=== PATIENT | male | born 1950 | race Caucasian/White ===

== ENCOUNTER 2018-03-08 11:16 | Emergency (ER) | payer OTHER ==
--- NOTE | 2018-03-08 12:24 | RAD REPORT ---
EXAM DESCRIPTION: RAD - Ankle Right 3 View - 03/08/2018 12:17 pm CLINICAL HISTORY: PAIN Trauma, bruising and laceration to leg. COMPARISON: No comparisons FINDINGS: Lateral ankle soft tissue swelling is seen. Small bony fragment is noted adjacent to the d istal fibula, probably related to previous trauma. No definitive acute fracture seen. Prominent calca kate spurs are evident. Prominent calcaneal spurs. If pain persists or progresses, MR imaging followu p would be of value.
--- NOTE | 2018-03-08 12:30 | RAD REPORT ---
EXAM DESCRIPTION: RAD - Tib Fib Left - 03/08/2018 12:21 pm CLINICAL HISTORY: PAIN Trauma, pain and laceration. COMPARISON: Knee Left 3 View dated 03/08/2018 FINDINGS: Bony fragmentation along the lateral malleolus appears well corticated and is favored to b e chronic. An acute fracture or dislocation is not confirmed. Soft tissue swelling is present about t he ankle. A radiopaque foreign body is not seen.
--- NOTE | 2018-03-08 12:31 | RAD REPORT ---
EXAM DESCRIPTION: RAD - Knee Left 3 View - 03/08/2018 12:17 pm CLINICAL HISTORY: PAIN Trauma, laceration, pain and swelling. COMPARISON: Tib Fib Left dated 03/08/2018 FINDINGS: Mild arthritic changes are present. No fracture or dislocation seen. No suprapatellar join t effusion. No radiopaque foreign body identified.
[2018-03-08 12:53] LABS: Potassium 4.4 mmol/L (3.5-5.1)
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
== END 2018-03-08 13:13 | disposition home or self-care (01) ==
LOC: ER 11:16
DX: S50.812A Abrasion of left forearm, initial encounter (principal); S80.12XA Contusion of left lower leg, initial encounter; S80.11XA Contusion of right lower leg, initial encounter; W31.89XA Contact with other specified machinery, initial encounter; Y93.9 Activity, unspecified; Y92.9 Unspecified place or not applicable
CPT/HCPCS: 36415; 80048; 82550; 99284

== ENCOUNTER 2018-10-02 07:33 | Day surgery (SDC) | payer OTHER ==
--- OUTSIDE RECORDS SUMMARY | 2018-10-02 07:35 | XMS REPORT ---
:1950 Author Organization e[employer] Care Team Providers Name Role Phone Lito Cristina Provider Role Unavailable Allergies, Adverse Reactions, Alerts Substance Reaction Event Type N.K.D.A. Info Not Available Non Drug Allergy Problems Problem Type Condition Code Onset Dates Condition Status Problem Hypocalcemia E83.51 Active Problem Mixed hyperlipidemia E78.2 Active Problem Dehydration E86.0 Active Assessment Encounter for screening colonoscopy Z12.11 Active Problem Prediabetes R73.03 Active Problem Benign prostatic hyperplasia without N40.0 Active lower urinary tract symptoms Medications Medication Code System Code Instructions Start Date End Date Status Dosage Vitamin D [facility] 32565725500 1000 UNIT Orally Active 1 tablet Once a day Results No Known Results Summary Purpose eClinicalWorks Submission
[2018-10-02] MEDS ORDERED: Ringers Lactate 1,000 ML IV ONE (07:49)
[2018-10-02] MEDS ORDERED: LIDOCAINE 1% MPF 5 ML VIAL ONE (08:34)
[2018-10-02] MEDS ORDERED: PROPOFOL 200 MG/20 ML VIAL IV ONE (08:34)
--- NOTE | 2018-10-02 09:14 | ENDO RPT ---
[address], [address] COLONOSCOPY PROCEDURE REPORT EXAM DATE: 10/02/2018 PATIENT NAME: Noah Funk MR #: [id number] BIRTHDATE: 1950 ATTENDING: Lito Cristina DR STATUS: outpatient WHEEL PRESS OPERATOR: Tami Castro RN, Julieta Xiong, and Graciela Ma RN INDICATIONS: The patient is a 68 yr old Male here for a colonoscopy due to colon cancer screening PROCEDURE PERFORMED: Screening Colonoscopy and Colonoscopy MEDICATIONS: Per Anesthesia. ESTIMATED BLOOD LOSS: None CONSENT: The patient understands the risks and benefits of the procedure and understands that these risks include, but are not limited to: sedation, allergic reaction, infection, perforation and/or bleeding. Alternative means of evaluation and treatment include, among others: physical exam, x-rays, and/or surgical intervention. The patient elects to proceed with this endoscopic procedure. DESCRIPTION OF PROCEDURE: During intra-op preparation period all mechanical medical equipment was checked for proper function. Hand hygiene and appropriate measures for infection prevention was taken. Procedure, possible complications, alternatives including, but not limited to possibility of bleeding, perforation, tear, infection, sepsis, need for surgery, need for blood transfusion, were explained to the patient. After the risks, benefits and alternatives of the procedure were thoroughly explained, Informed consent was verified, confirmed and timeout was successfully executed by the treatment team. The patient was placed in the left lateral position. A digital rectal exam was performed and revealed internal hemorrhoids. After appropriate level of anesthesia, the scope was passed. The EC-[id number] ([id number]) endoscope was introduced through the anus and advanced to the cecum, which was identified by both the appendix and ileocecal valve. The quality of the prep was fair. The instrument was then slowly withdrawn as the colon was fully examined. Scope withdrawal time was 9 minutes. COLON FINDINGS: Small internal hemorrhoids were found. The colon mucosa was otherwise normal. Retroflexed views revealed no abnormalities. The scope was then completely withdrawn from the patient and the procedure terminated. ADVERSE EVENTS: There were no complications. IMPRESSIONS: 1. Small internal hemorrhoids 2. The colon mucosa was otherwise normal RECOMMENDATIONS: 1. fiber rich diet 2. hemorrhoidal hygiene 3. yearly hemoccult starting in 4 years RECALL: Return in 10 year(s) for Colonoscopy. Lito Cristina DR eSigned: Lito Cristina DR 10/02/2018 9:07 AM cc: CPT CODES: ICD9 CODES: PATIENT NAME: Noah Funk MR#: [id number]
== END 2018-10-02 09:41 | disposition home or self-care (01) ==
LOC: OR 07:33
PROVIDERS: ATTEND Surgery
PROC: 0DJD8ZZ Inspection of Lower Intestinal Tract, Via Natural or Artificial Opening Endoscopic (ICD-10-PCS; principal; 2018-10-02 08:30)
DX: Z12.11 Encounter for screening for malignant neoplasm of colon (principal); K64.8 Other hemorrhoids; E78.2 Mixed hyperlipidemia; R73.03 Prediabetes; E83.51 Hypocalcemia; Z87.891 Personal history of nicotine dependence; Z80.3 Family history of malignant neoplasm of breast; Z80.1 Family history of malignant neoplasm of trachea, bronchus and lung; Z80.6 Family history of leukemia
CPT/HCPCS: G0121; J2704

== ENCOUNTER 2023-04-23 08:54 | Day surgery (SDC) | payer OTHER ==
[2023-04-20 11:28] LABS: Potassium 4.4 mEq/L (3.5-5.1)
[2023-04-23] MEDS ORDERED: NA CHLORIDE 0.9% 500 ML ONE (09:28)
[2023-04-23] MEDS ORDERED: TETRACAINE HCL 0.5% 4ML OPTH ONE (09:44)
[2023-04-23] MEDS: CYCLOPENTOLATE 1% OPTH 2 ML ONE ×3 (11:08→11:18)
[2023-04-23] MEDS: PHENYLEPHRINE 10% OPTH 5ML ONE ×3 (11:08→11:18)
[2023-04-23] MEDS ORDERED: BUPIVACAINE 0.25% PF 10 ML VIAL ONE (11:52)
[2023-04-23] MEDS ORDERED: BSS OPTHALMIC SOL 15 ML OPTH ONE (11:52)
[2023-04-23] MEDS ORDERED: LIDOCAINE 2% MPF 5 ML VIAL ONE ×2 (11:52→12:12)
[2023-04-23] MEDS ORDERED: BALANCED SALT IRRIG PLAIN 500 ML IRR ONE (11:53)
[2023-04-23] MEDS ORDERED: DUOVISC 1 KIT OPTH ONE (11:53)
[2023-04-23] MEDS ORDERED: LIDOCAINE 1% MPF 2 ML AMPULE ONE (11:53)
[2023-04-23] MEDS ORDERED: EPINEPHRINE/PF 1 MG/ML AMP ONE (11:53)
[2023-04-23] MEDS ORDERED: propofoL 200 MG/20 ML VIAL IV ONE (12:12)
--- NOTE | 2023-04-23 13:12 | EKG ---
Test Date: 2023-04-20 Test Time: 10:07:09 Credit Reference Clerk: JOAO MEASUREMENT RESULTS: Intervals: Rate: 71 WA: 174 QRSD: 90 QT: 398 QTc: 432 [place]: P: 62 WA: 174 QRS: 47 T: 18 INTERPRETIVE STATEMENTS: Normal sinus rhythm Cannot rule out Anterior infarct, age undetermined Abnormal ECG Compared to ECG 06/23/2002 21:33:00 Myocardial infarct finding now present Electronically Signed On 04-23-23 13:08:51 CDT by Evin Burton
[2023-04-23] MEDS ORDERED: MOXIFLOXACIN HCL 10 DROPS/ML **OR USE OPTH ONE (13:43)
[2023-04-23 14:37] VITALS: TEMP 97; O2SAT 100
[2023-04-23 14:39] VITALS: BP 154/77
--- NOTE | 2023-04-23 17:57 | OP ---
Date of Procedure: 04/23/2023 Surgeon: Daria Lynn MD Anesthesiologist: Candace Bernabe CRNA and Gavin Dowling MD. Preoperative Diagnosis: Nuclear sclerotic cataract, left eye. Operation Performed: Phacoemulsification with intraocular lens implant, left eye. Anesthesia: Per cataract surgery. Complications: None. Description Of Procedure: In day surgery, the patient was prepped with Betadine and draped. A conjunctival incision was made in the inferior nasal quadrant with Marco A scissors. A sub-Tenon block consisting of a 1:1 mixture of 2% Xylocaine and 0.25% bupivacaine was placed through the conjunctival incision with a blunt cannula. A [place] balloon was placed over the eye and the patient was transferred to the operating room. In the operating room the patient was prepped and draped in the usual sterile fashion for ophthalmic surgery. A lid speculum was placed in the left eye. A paracentesis sites were made inferiorly in the limbal cornea. Viscoat was placed in the anterior chamber and a keratome was used to enter the anterior chamber. A 360 degree capsulotomy was performed with utrata forceps. The lens was hydrodissected with BSS and rotated freely. The lens was removed with a stop and chop technique. 2.77 phaco CDE was used to remove the lens. Residual cortex was removed with the irrigation and aspiration. Provisc was placed in the capsular bag. A DCB00 +24.0 lens was placed in the capsular bag without complications. Irrigation and aspiration was used to remove residual viscoelastic. The paracentesis sites were hydrated with BSS. The wound and paracentesis sites were inspected and found to be watertight. Vigamox 0.07 cc was placed intracamerally at the end of the procedure. The eye was patched with a soft cotton patch and clear plastic shield. The patient was returned to day surgery in good condition. Comments: Discharge Instructions: Mr. Funk is discharged to home in good condition to follow up with Dr. Lynn in the morning. ESTEVAN/WOLFGANG Voice ID: [id number] Report ID: [id number] [facility]
== END 2023-04-23 14:27 | disposition home or self-care (01) ==
LOC: OR 08:54
PROVIDERS: ADMIT Ophthalmology Retina Specialist; ATTEND Ophthalmology Retina Specialist
PROC: 08RK3JZ Replacement of Left Lens with Synthetic Substitute, Percutaneous Approach (ICD-10-PCS; principal; 2023-04-23 11:00)
DX: H25.12 Age-related nuclear cataract, left eye (principal)
CPT/HCPCS: 93005; 80048; 36415; 66984; J2704; J0171; J2001 ×2; J7040